=== PATIENT | male | born 1990 | race Hispanic/Latino ===

== ENCOUNTER 2018-06-29 06:50 | Emergency (ER) | payer SELFPAY ==
[~2018-06-29] VITALS: Ht 165.1 cm; Wt 90.0 kg
[2018-06-29] MEDS ORDERED: NAPROSYN500 MG PO (07:32)
[2018-06-29 07:44] VITALS: BP 127/77
== END 2018-06-29 07:45 | disposition home or self-care (01) | DRG 538 ==
LOC: ED 06:50
DX: S73.102A Unspecified sprain of left hip, initial encounter (principal); W17.89XA Other fall from one level to another, initial encounter; Y93.89 Activity, other specified; Y92.73 Farm field as the place of occurrence of the external cause; Y99.0 Civilian activity done for income or pay

== ENCOUNTER 2020-02-17 | Emergency (ER) | payer SELFPAY ==
[~2020-02-17] MED LIST: NAPROSYN500 MG PO
[2020-02-17 13:26] LABS: HEMATOCRIT 44.5 % (39.0-50.0); HEMOGLOBIN 15.2 g/dl (14.0-18.0); IMMATURE GRANULOCYTES 0.5 % (0.0-5.0); MEAN CELL VOLUME 85.2 fL CALC (80.0-100.0); MEAN CORPUSCULAR HGB 29.1 pG CALC (26.0-32.0); MEAN CORPUSCULAR HGB CONC 34.2 g/dL CAL (32.0-36.0); NEUT# 7.6 thou/uL (1.82-7.42); RED BLOOD COUNT 5.22 mill/uL (4.70-6.10); RED CELL DISTRI WIDTH 12.6 % (11.5-15.5)
[2020-02-17 13:39] LABS: ALBUMIN 4.7 g/dL (3.2-5.0); ALKALINE PHOSPHATASE 101 u/l (38-126); ANION GAP 18 (6-22 (CALC)); BILIRUBIN, TOTAL 0.6 mg/dL (0.0-1.4); BUN 11 mg/dL (9-20); BUN/CREATININE RATIO 16 (12-20 (CALC)); CARBON DIOXIDE 20 mmol/l (22-30); CHLORIDE 103 mmol/l (95-108); CREATININE 0.7 mg/dL (0.7-1.3); GFR > 60 ML/MIN (>=60 (CALC)); GFR FOR AFR.AMER. > 60 ML/MIN (>=60 (CALC)); POTASSIUM 3.8 mmol/l (3.5-5.1); SGOT/AST 37 u/l (17-59); SODIUM 136 mmol/l (137-146); TOTAL PROTEIN 8.4 g/dL (6.3-8.2)
[2020-02-17] MEDS ORDERED: AMOXICILLIN875 MG PO (14:38)
--- NOTE | 2020-02-22 08:27 | NUR ---
Notified patient of Covid results (negative). Advised patient to follow up with PCP or return to ED for urgent needs. Advised patient to continue practicing Covid prevention measures. Patient verbalized understanding.
== END 2020-02-17 14:53 | disposition home or self-care (01) | DRG 153 ==
DX: J02.0 Streptococcal pharyngitis (principal); Z20.828 Contact with and (suspected) exposure to other viral communicable diseases

== ENCOUNTER 2020-04-27 07:50 | Emergency (ER) | payer SELFPAY ==
[~2020-04-27] VITALS: Ht 165.1 cm; Wt 81.0 kg
[~2020-04-27 07:50] MED LIST changes: +AMOXICILLIN875 MG PO
[2020-04-27] MEDS ORDERED: AMOXICILLIN500 M2 PO ×2 (09:00)
[2020-04-27 09:26] VITALS: BP 142/95
== END 2020-04-27 09:35 | disposition home or self-care (01) | DRG 153 ==
LOC: ED 07:50
DX: J02.0 Streptococcal pharyngitis (principal)

== ENCOUNTER 2020-05-26 19:28 | Emergency (ER) | payer SELFPAY ==
[~2020-05-26] VITALS: Ht 165.1 cm; Wt 93.0 kg
[~2020-05-26 19:28] MED LIST changes: +AMOXICILLIN500 M2 PO
[2020-05-26] MEDS ORDERED: AMOXICILLIN875 MG PO (20:37)
[2020-05-26 20:45] VITALS: BP 131/79
== END 2020-05-26 20:45 | disposition home or self-care (01) | DRG 153 ==
LOC: ED 19:28
DX: J02.0 Streptococcal pharyngitis (principal); Z20.828 Contact with and (suspected) exposure to other viral communicable diseases

== ENCOUNTER 2020-06-29 11:40 | Emergency (ER) | payer SELFPAY ==
[~2020-06-29] VITALS: Ht 165.1 cm; Wt 70.0 kg
[2020-06-29] MEDS ORDERED: AMOXICILLIN875 MG PO (12:09)
[2020-06-29 12:13] VITALS: BP 158/85
== END 2020-06-29 12:13 | disposition home or self-care (01) | DRG 153 ==
LOC: ED 11:40
DX: J02.9 Acute pharyngitis, unspecified (principal)

== ENCOUNTER 2020-07-02 10:43 | Emergency (ER) | payer SELFPAY ==
[~2020-07-02] VITALS: Ht 165.1 cm; Wt 93.0 kg
[2020-07-02 11:21] LABS: HEMATOCRIT 47.5 % (39.0-50.0); HEMOGLOBIN 15.8 g/dl (14.0-18.0); IMMATURE GRANULOCYTES 0.3 % (0.0-5.0); MEAN CELL VOLUME 84.7 fL CALC (80.0-100.0); MEAN CORPUSCULAR HGB 28.2 pG CALC (26.0-32.0); MEAN CORPUSCULAR HGB CONC 33.3 g/dL CAL (32.0-36.0); NEUT# 3.48 thou/uL (1.82-7.42); RED BLOOD COUNT 5.61 mill/uL (4.70-6.10); RED CELL DISTRI WIDTH 12.3 % (11.5-15.5)
[2020-07-02 11:43] LABS: ALBUMIN 5.2 g/dL (3.2-5.0); ALKALINE PHOSPHATASE 122 u/l (38-126); ANION GAP 16 (6-22 (CALC)); BILIRUBIN, TOTAL 0.7 mg/dL (0.0-1.4); BUN 16 mg/dL (9-20); BUN/CREATININE RATIO 19 (12-20 (CALC)); CARBON DIOXIDE 22 mmol/l (22-30); CHLORIDE 102 mmol/l (95-108); CREATININE 0.9 mg/dL (0.7-1.3); GFR > 60 ML/MIN (>=60 (CALC)); GFR FOR AFR.AMER. > 60 ML/MIN (>=60 (CALC)); LIPASE 477 u/l (23-300); POTASSIUM 3.9 mmol/l (3.5-5.1); SODIUM 136 mmol/l (137-146); TOTAL PROTEIN 9.2 g/dL (6.3-8.2)
[2020-07-02 11:46] LABS: SGOT/AST 67 u/l (17-59)
[2020-07-02] MEDS ORDERED: ZOFRAN4 M1 PO (11:54)
[2020-07-02 12:01] VITALS: BP 121/80
== END 2020-07-02 12:12 | disposition home or self-care (01) | DRG 392 ==
LOC: ED 10:43
PROVIDERS: Family Medicine
DX: R11.2 Nausea with vomiting, unspecified (principal)